=== PATIENT | female | born 1940 | race Caucasian/White ===

== ENCOUNTER 2018-01-28 20:10 | Emergency (ER) | payer MEDICARE ==
[2018-01-28] MEDS: MORPHINE 4 MG/ML 1ML VIAL/SYRINGE (J2270) IV (22:24)
[2018-01-28] MEDS: NS 1,000 ML IV (23:42)
[2018-01-29] MEDS: MORPHINE 4 MG/ML 1ML VIAL/SYRINGE (J2270) IV (00:10)
== END 2018-01-29 00:54 | disposition short-term general hospital (02) ==
LOC: M ED 01-29 00:54
DX: S72.392A Other fracture of shaft of left femur, initial encounter for closed fracture (principal); Z96.652 Presence of left artificial knee joint; W19.XXXA Unspecified fall, initial encounter; Y92.099 Unspecified place in other non-institutional residence as the place of occurrence of the external cause; Y93.H2 Activity, gardening and landscaping; Y99.9 Unspecified external cause status; E03.9 Hypothyroidism, unspecified; Z79.899 Other long term (current) drug therapy; Z88.2 Allergy status to sulfonamides
CPT/HCPCS: J2270